=== PATIENT | female | born 1940 | race Caucasian/White ===

== ENCOUNTER 2018-03-21 15:24 | Outpatient (CLI) | payer MEDICARE ==
--- NOTE | 2018-03-21 16:16 | RAD ---
SI JOINTS THREE VIEWS: History: Chronic back and sacral pain. FINDINGS: SI joints are symmetric without evidence of bony ankylosis or erosive type change. I do not appreciat e any fracture. The bones appear demineralized. There are arthritic changes in the lower lumbar spine . IMPRESSION: No acute findings. POS: [facility]
--- NOTE | 2018-03-21 16:33 | RAD ---
THORACIC SPINE SERIES THREE VIEWS: History: Chronic back pain, worsening over the last month. FINDINGS: The bones appear demineralized. I do not see any signs of any acute compression injury. Degenerative changes are noted. IMPRESSION: Mild arthritic changes of the spine. No signs of acute compression injury. POS: [facility]
--- NOTE | 2018-03-21 18:04 | RAD ---
LUMBAR SPINE SERIES 3 VIEWS: HISTORY: Worsening back pain over the last month. FINDINGS: The bones appear demineralized. No compression fractures are seen. There is severe disk narrowing a t L4-5 and a spondylolisthesis of approximately 9 mm. There are degenerative facet changes present. Vascular calcifications are noted. IMPRESSION: Eight millimeters of spondylolisthesis of L4 and L5 with severe disk narrowing at this level. POS: C
== END 2018-03-21 15:25 | disposition home or self-care (01) ==
LOC: SCSRAD 15:24
PROVIDERS: ATTEND Family Medicine
DX: M54.5 Low back pain (principal); M54.6 Pain in thoracic spine; M43.16 Spondylolisthesis, lumbar region; M46.94 Unspecified inflammatory spondylopathy, thoracic region; M51.36 Other intervertebral disc degeneration, lumbar region
CPT/HCPCS: 72072; 72100; 72202